=== PATIENT | male | born 1965 | race Caucasian/White ===

== ENCOUNTER 2020-05-02 15:08 | Inpatient (IN) | payer OTHER, MEDICAID, SELFPAY ==
[~2020-05-02] VITALS: Ht 162.6 cm; Wt 36.7 kg
--- NOTE | 2020-05-02 15:14 | NUR ---
Patient to ER bed 4 to gown for evaluation. Side rails up. Report given to OTTO Aguilera.
--- NOTE | 2020-05-02 15:20 | NUR ---
PT GAYATHRI FROM [facility] FOR MEDICAL EVALUATION AND CLEARANCE. PT HAS A HX OF BULEMIA AND HAS REFUSING TO EAT RESULTING IN ABOUT 10LB WEIGHT LOSS OVER THE LAST 2 WEEKS. PT HAS ALSO HAD ABNORMAL ELECTROLYTE VALUES. PT HAS A HX OF SCHIZOPHRENIA. PRESENTS AAOX3, V/S STABLE
[2020-05-02] MEDS ORDERED: DIVA500T4 PO (15:33)
[2020-05-02] MEDS ORDERED: LORA-259 PO (15:33)
[2020-05-02] MEDS ORDERED: PRO40 PO (15:33)
[2020-05-02] MEDS ORDERED: OLAN20TA30 PO (15:33)
[2020-05-02] MEDS ORDERED: ACET325T53 PO (15:33)
[2020-05-02] MEDS ORDERED: FERR325T30 PO (15:33)
[2020-05-02] MEDS ORDERED: [UNRECOGNIZED DRUG - OTHER] PO (15:33)
[2020-05-02] MEDS ORDERED: ZOLP5TAB2 PO (15:33)
[2020-05-02] MEDS ORDERED: MAGN24003 PO (15:33)
[2020-05-02] MEDS ORDERED: OLAN5TAB39 PO (15:33)
--- NOTE | 2020-05-02 15:33 | NUR ---
Medication reconciliation completed with information provided by [facility]. Any prior medication reconciliation on file was reviewed and corrected.
--- NOTE | 2020-05-02 15:35 | NUR ---
ER DR. CLARKE AT THE BEDSIDE EVALUATING PT
--- NOTE | 2020-05-02 15:37 | NUR ---
PORTABLE X-RAY AT THE BEDSIDE
[2020-05-02 16:25] LABS: BASOPHILS % (AUTO) 0.3 % (0.0-2.0); EOSINOPHILS # (AUTO) 0.1 K/uL (0.0-0.4); EOSINOPHILS % (AUTO) 0.5 % (0.0-4.0); HEMATOCRIT 39.1 % (36-54); HEMOGLOBIN 12.2 g/dL (14.0-18.0); LYMPHOCYTES # (AUTO) 2.6 K/uL (1.0-5.5); LYMPHOCYTES % (AUTO) 18.8 % (20.5-51.5); MEAN CORPUSCULAR HEMOGLOBIN 26 pg (27-31); MEAN CORPUSCULAR HGB CONC 31 % (32-36); MEAN CORPUSCULAR VOLUME 84 fL (79.0-98.0); MONOCYTES # (AUTO) 1.4 K/uL (0.0-1.0); NEUTROPHILS # (AUTO) 9.9 K/uL (1.8-7.7); NEUTROPHILS % (AUTO) 70.4 % (40.0-70.0); PLATELET COUNT (AUTO) 437 K/uL (130-430); RED BLOOD CELL COUNT(AUTO) 4.68 MIL/uL (4.2-6.2); RED CELL DISTRIBUTION WIDTH 15.7 % (9.0-15.0)
[2020-05-02 16:42] LABS: ANION GAP 8 (5-15); CALCIUM 8.9 mg/dL (8.4-11.0); CHLORIDE 87 mmol/L (98-107); CREATININE 0.81 mg/dL (0.55-1.30); GLUCOSE 73 mg/dL (70-99); POTASSIUM 3.4 mmol/L (3.5-5.1); SODIUM SERUM 127 mmol/L (136-145); UREA NITROGEN, BLOOD 51 mg/dL (8-21)
--- NOTE | 2020-05-02 16:55 | NUR ---
ADMIT ORDERS RECEIVED FROM DR. PHILIP
[2020-05-02 16:56] LABS: ALANINE AMINOTRANSFERASE 21 U/L (12-78); ALBUMIN 3.5 g/dL (3.4-4.8); ASPARTATE AMINOTRANSFERASE 36 U/L (10-37); BILIRUBIN,DIRECT 0.1 mg/dL (0.0-0.3); FREE T4 (FREE THYROXINE) 1.7 ng/dl (0.8-1.5); LIPASE 71 U/L (73-393); PHOSPHORUS 3.4 mg/dL (2.7-4.5); THYROID STIMULATING HORMONE 0.28 uIu/mL (0.36-3.74); TOTAL BILIRUBIN 0.4 mg/dL (0.0-1.0)
[2020-05-02] MEDS ORDERED: KCL 20 mEq in D5/0.45NS 1000mL 1,000 ML IV ONE (17:00)
--- NOTE | 2020-05-02 17:00 | NUR ---
# 20 gauge angiocath placed to LFA. Use of asceptic technique. Opsite placed over site. Blood return noted. Flushed with 10 cc of normal saline. No evidence of infiltration noted. Patient tolerated well.
--- NOTE | 2020-05-02 17:00 | NUR ---
COVID SWAB DONE AND SENT TO LAB
--- NOTE | 2020-05-02 17:05 | NUR ---
CALLED FOR MS BED, PER CHARGE NURSE NO BEDS AVAILABLE
[2020-05-02 17:09] LABS: ACETAMINOPHEN < 1 ug/mL (1-30); GFR AFRICAN AMERICAN 129 mL/min (>90)
[2020-05-02] MEDS ORDERED: ZOLPIDEM TARTRATE 5 MG TABLET PO SCH (18:45)
[2020-05-02] MEDS ORDERED: LORazepam 1 MG TABLET PO PRN (18:45)
[2020-05-02] MEDS ORDERED: ACETAMINOPHEN 325 MG TABLET PO PRN (18:45)
--- NOTE | 2020-05-02 19:21 | NUR ---
REPORT GIVEN TO OTTO NEGRETE FOR CONTINUING CARE
--- NOTE | 2020-05-02 19:21 | NUR ---
Assumed care of patient at change of shift. Introduced self to patient who is currently eating his dinner tray approx 15%. Positioned for comfort and safety w/ bed to low position sr up, continue to monitor level of comfort. Iv site to LAC w/ D5 1/2 NS at 125ml infusing w/ site patent and intact. nsr on property assessment monitor
[2020-05-02] MEDS ORDERED: ONDANSETRON HCL 4 MG/2 ML VIAL IVP PRN (19:45)
[2020-05-02] MEDS: KCL 20 mEq in D5NS 1000 mL 1,000 ML IV SCH (20:33)
[2020-05-02] MEDS: ENOXAPARIN SODIUM 30 MG/0.3 ML SYRINGE SUBCUT SCH (20:37)
--- NOTE | 2020-05-02 20:42 | NUR ---
patient medicated as ordered. Will observe for any adverse reaction. Changed D5 1/2 NS at 125ml/hr to D5NS at 100 ml/hr. iv site patent and intact. continue to monitor.
[2020-05-02] MEDS ORDERED: DIVALPROEX SODIUM 500 MG TAB.SR.24H (DEPAKOTE ER) PO ONE (21:00)
[2020-05-02] MEDS: FERROUS SULFATE 325 MG TABLET.DR PO SCH (21:24)
--- NOTE | 2020-05-02 21:38 | NUR ---
patient w/ increased agitation, medicated as ordered. will observe for any adverse reactionl bed to low position sr up, continue to monitor.
--- NOTE | 2020-05-02 22:19 | NUR ---
patient resting comfortably at this time, decreased agitation and hollering. Bed to low position sr up. No adverse reaction noted to administered medications. Continue to monitor.
--- NOTE | 2020-05-02 23:46 | NUR ---
Patient resting quietly. No acute distress noted. Vital signs within normal range. Continue to monitor level of comfort and safety. No adverse reaction noted to administered medications.
--- NOTE | 2020-05-03 00:40 | NUR ---
Patient will be admitted to care of [facility]. Admitted to unit. Will go to room . Belongings list completed. Complete and up to date summary report printed. SBAR report to be given Kassidy MENJIVAR for room 100B with opportunity for questions.
--- NOTE | 2020-05-03 01:06 | NUR ---
ADMISSION NOTES ADMITTED PATIENT FROM ER FOR DEHYDRATION/HYPOKALEMIA. PATIENT ORIENTED TO SELF. BREATHING UNLABORED ON ROOM AIR. DENIES ANY PAIN. IVF INFUSING ORDERED. VITAL SIGNS STABLE. ADMISSION PROCESS INITIATED. PATIENT ORIENTED TO CALL LIGHT, TV REMOTE, BED CONTROLS. BED IN LOWEST LOCKED POSITION WITH ALARM ON.
[2020-05-03 01:14] VITALS: BP_SYST 114
[2020-05-03 01:22] LABS: BILIRUBIN,URINE NEGATIVE (NEGATIVE); BLOOD, URINE NEGATIVE (NEGATIVE); CLARITY/URINE CLOUDY (CLEAR); COLOR,URINE YELLOW (YELLOW); GLUCOSE,URINE NEGATIVE (NEGATIVE); KETONES,URINE NEGATIVE (NEGATIVE); LEUKOCYTE ESTERASE ,URINE NEGATIVE (NEGATIVE); NITRITE, URINE POSITIVE (NEGATIVE); PH,URINE 5.5 (5.0-8.0); PROTEIN URINE NEGATIVE (NEGATIVE); UROBILINOGEN,URINE 0.2 (0.2-1.0)
[2020-05-03 01:29] LABS: BACTERIA,URINE MODERATE /HPF (None Seen); RBC,URINE 20-50 /HPF (0-3); WBC,URINE 20-50 /HPF (0-3)
--- NOTE | 2020-05-03 01:45 | NUR ---
ORAL INTAKE PATIENT STARTED GAGGING/SPITTING IN VOMIT BAG AFTER CONSUMING 1 CUP OF APPLE JUICE. ADDITIONAL VOMIT BAG AT BEDSIDE.
--- NOTE | 2020-05-03 03:07 | NUR ---
ROUNDS PATIENT RESTING IN BED. NO DISTRESS NOTED. IVF INFUSING. BED ALARM ON.
[2020-05-03] MEDS ORDERED: KCL 20 mEq in D5NS 1000 mL 1,000 ML IV ONE (03:23)
--- NOTE | 2020-05-03 04:56 | NUR ---
ROUNDS PATIENT RESTING IN BED. NO DISTRESS NOTED.
[2020-05-03] MEDS: KCL 20 mEq in D5NS 1000 mL 1,000 ML IV SCH ×2 (05:58→15:00)
[2020-05-03 06:27] LABS: BASOPHILS # (AUTO) 0.1 K/uL (0.0-0.2); BASOPHILS % (AUTO) 0.5 % (0.0-2.0); EOSINOPHILS # (AUTO) 0.1 K/uL (0.0-0.4); EOSINOPHILS % (AUTO) 0.6 % (0.0-4.0); HEMATOCRIT 31.8 % (36-54); HEMOGLOBIN 10.4 g/dL (14.0-18.0); LYMPHOCYTES # (AUTO) 2.8 K/uL (1.0-5.5); LYMPHOCYTES % (AUTO) 26.3 % (20.5-51.5); MEAN CORPUSCULAR HEMOGLOBIN 27 pg (27-31); MEAN CORPUSCULAR HGB CONC 33 % (32-36); MONOCYTES # (AUTO) 1.4 K/uL (0.0-1.0); MONOCYTES % (AUTO) 12.9 % (1.7-9.3); NEUTROPHILS # (AUTO) 6.3 K/uL (1.8-7.7); NEUTROPHILS % (AUTO) 59.7 % (40.0-70.0); PLATELET COUNT (AUTO) 403 K/uL (130-430); RED BLOOD CELL COUNT(AUTO) 3.86 MIL/uL (4.2-6.2); RED CELL DISTRIBUTION WIDTH 15.3 % (9.0-15.0); WHITE BLOOD COUNT (AUTO) 10.6 K/uL (4.8-10.8)
--- NOTE | 2020-05-03 07:10 | NUR ---
PAGED PAGED YAMILEX BENEDICT AT [phone] SPOKE WITH CASSIDY.
[2020-05-03 07:11] LABS: CALCIUM 8.3 mg/dL (8.4-11.0); CREATININE 0.68 mg/dL (0.55-1.30)
--- NOTE | 2020-05-03 07:15 | NUR ---
post fall/ Dr. rousseau patient was found on the floor by EVS. Patient has laceration to left eyebrow with abrasion to left cheek. Dr. Rousseau was informed ordered a PT eval, nothing ordered for the head. cleaned laceration with normal saline, pat dry with gauze and placed bandaid over laceration. patient is confused same as prior to fall. patient had bed alarm on but was in room 100 B moved patient to 104A post fall. post fall assessment done. patient was educated to use call light prior to getting out of bed. patient verbalized understanding but is still confused. patient given fall risk arm band, as well as yellow socks. Patient keeps spitting up the water he is drinking night nurse stated he was doing this all night. report was endorsed by night nurse. no other needs at this time.
[2020-05-03 07:27] VITALS: BP_SYST 132
[2020-05-03 07:54] LABS: MEAN CORPUSCULAR VOLUME 82 fL (79.0-98.0)
--- NOTE | 2020-05-03 08:37 | NUR ---
CONSULTATION PAGED/CALLED Reason for Consultation: [] PSYCHOSIS Person Who was Notified: [] LEFT A VM ON HIS CELL Consulting Physician: [] DR CAMACHO Loan Assistant Specialty: [] PSYCH Ordering Physician: [] DR PHILIP
[2020-05-03] MEDS ORDERED: OLANZapine 5 MG TAB.RAPDIS PO SCH (09:00)
[2020-05-03] MEDS: FERROUS SULFATE 325 MG TABLET.DR PO SCH ×2 (09:10→20:27)
[2020-05-03] MEDS: PANTOPRAZOLE SODIUM 40 MG TAB PO SCH (09:10)
[2020-05-03] MEDS: DIVALPROEX SODIUM 500 MG TAB.SR.24H (DEPAKOTE ER) PO SCH ×2 (09:10→20:28)
--- NOTE | 2020-05-03 09:15 | NUR ---
medication patients scheduled medication given per order. patient is awake and alert, speech is garbled. patient keeps spitting up what is swallowed offer antinausea medication but is refusing. patient educated online user experience strategist light , call light is with him. patient is now close to nurses station. patient requested apple juice in ice provided to patient as requested. patient is moving all over and pulling on iv,applied more tape to insertion site educated to not pull on iv.
--- NOTE | 2020-05-03 11:00 | NUR ---
RN ROUNDING PATIENT IS CURSING AT NURSE. PATIENT IS STATING HE WANTS ICE AND APPLE JUICE PROVIDED TO THE PATIENT APPEARS TO BE SPITTING IT UP. CONTENTS ARE CLEAR. PATIENT APPEAR TO HAVE SPIT UP HIS MORNING MEDICATION. ASKED PATIENT IF HE WOULD LIKE SOMETHING FOR THE NAUSEA BUT HE STATES NO. PATIENT'S SPEECH IS VERY GARBLED. PATIENT IS CLOSE TO NURSES STATION. PATIENT HAS NO OTHER NEEDS AT THIS TIME.ALL SAFETY PRECAUTIONS IN PLACE. PATIENT HAS CALL LIGHT WITH HIM EDUCATED TO USE CALL LIGHT FOR ASSISTANCE.
[2020-05-03 11:23] VITALS: BP_SYST 129
--- NOTE | 2020-05-03 13:55 | NUR ---
RN ROUNDING PATIENT APPEARS TO BE RESTING WITH BOTH EYES CLOSED NO SIGNS OF ANY DISTRESS, BREATHING IS EQUAL AND NON LABORED. PATIENT IS CLOSE TO NURSES STATION. ALL SAFETY PRECAUTIONS IN PLACE. NO OTHER NEEDS AT THIS TIME.
[2020-05-03 15:10] VITALS: BP_SYST 140
--- NOTE | 2020-05-03 15:30 | NUR ---
IV SITE PATIENT REMOVED iv CATHETER CATHETER INTACT, APPLIED GAUZE AND TAPE TO INSERTION SITE. PATIENT IS REFUSING TO START A NEW IV. PATIENT EDUCATED ON IMPORTANCE FOR MEDICATION AND IV FLUID BUT IS STILL REFUSING. PATIENT EDUCATED MANAGEMENT SME LIGHT, CALL LIGHT IS WITH HIM. PATIENT IS REQUESTING APPLE JUICE AND ICE PATIENT KEEPS SPITTING EVERYTHING UP . PATIENT IS REFUSING ANYTHING FOR NAUSEA. PATIENT IS CLOSE TO NURSES STATION. NO OTHER NEEDS AT THIS TIME.
--- NOTE | 2020-05-03 16:30 | NUR ---
SS notes VP MEDICAL meet with patient on her third attempt. Patient had been sleeping with his head under the sheet and in a position. Patient uncovered his head and began talking, but VP MEDICAL was not able to comprehend what patient was saying. Patient would speak, but throughout the interview, VP MEDICAL was unable to understand patient who looked much older than his age of 54. Patient stated he was 60 and that he resided with his friends mom Mrs. Pretty in [place]. Patient denied being homeless and agreed he had been at [facility]. Patient denied having any mental health diagnosis. When VP MEDICAL asked specifically if patient had ever ade diagnosed with psychosis or schizophrenia patient denied this. VP MEDICAL asked patient if he had ever been or is suicidal. Patient denied this. VP MEDICAL shared with patient some homeless resources. VP MEDICAL will remain available as needed. Addendum: 05/03/20 at 1643 by Robyn [employer] Protective Signal Operations Supervisor Notes When VP MEDICAL asked patient if he had any emergency contacts to which patient stated he did not. VP MEDICAL placed a homeless waiver in patients file.
--- NOTE | 2020-05-03 17:08 | NUR ---
RN ROUNDING PATIENT IS AWAKE AND ALERT SITTING UP IN BED. PATIENT IS STILL REFUSING IV SITE. PATIENT IS CLOSE TO NURSES STATION. PATIENT EDUCATED SYSTEM PLANNING ENGINEER LIGHT, CALL LIGHT IS WITH HIM. PATIENT IS CLOSE TO NURSES STATION. NO OTHER NEEDS AT THIS TIME.
--- NOTE | 2020-05-03 17:12 | NUR ---
PAGING DR. PHILIP TO INFORM OF POTASSIUM LEVEL, AND REFUSING IV ACCESS.
[2020-05-03] MEDS ORDERED: HALOPERIDOL LACTATE 5 MG/ML VIAL IM ONE (18:15)
--- NOTE | 2020-05-03 18:15 | NUR ---
dr. richey at nurses [facility]. informed md that patient is refusing iv access, and of lower potassium orders were received. md states that wants patient to have iv to replace potassium and continue with iv fluids. patient is awake and alert, orders put in the chart.
--- NOTE | 2020-05-03 18:52 | NUR ---
MEDICATION PATIENTS SCHEDULED DOSE OF HODOL GIVEN PER ORDER. PER MD WAIT UNTIL PATIENT CALMS DOWN THEN START AN IV, START IV FLUID BACK ONE. PATIENT IS AWAKE AND ALERT LAYING UPSIDE DOWN IN BED. PATIENT SHOWS NO SIGNS OF DISTRESS, TOLERATED MEDICATION WELL. PATIENT IS CLOSE TO NURSES STATION. PATIENT HAS ALLS AEFTTYP
--- NOTE | 2020-05-03 19:20 | NUR ---
OPENING NOTE patient is resting in bed, patient is only alert to self. patient is laying down supine with head at the end of the bed and legs at the head of the bed. educated call or contact centre manager light system and plan of care, patient just nodded his head and did not give me verbal agreement. patient refusing IV insertion at this time, will attempt again throughout the shift. no other needs addressed at this time, fall/safety, and aspiration precautions in place.
[2020-05-03 20:00] VITALS: BP_SYST 112
[2020-05-03] MEDS ORDERED: KCL 20 mEq in 100 mL (PREMIX) 100 ML IV SCH (20:00)
[2020-05-03] MEDS: OLANZapine 5 MG TAB.RAPDIS PO SCH (20:27)
[2020-05-03] MEDS: ENOXAPARIN SODIUM 30 MG/0.3 ML SYRINGE SUBCUT SCH (20:29)
--- NOTE | 2020-05-03 21:40 | NUR ---
ROUNDS patient resting in bed, eyes closed breathing easy and nonlabored. no signs of distress at this time, tolerating well on room air, no other needs addressed at this time, fall/safety and aspiration precautions in place.
--- NOTE | 2020-05-03 23:19 | NUR ---
PATIENT RESTING IN BED eyes closed, breathing easy and nonlabored. mumbling words. no signs of distress at this time. no needs addressed at this time. fall/safety and aspiration precautions in place.
--- NOTE | 2020-05-04 00:15 | NUR ---
PATIENT REFUSED VITAL SIGNS AND IV INSERTION patient refused vital signs with SKI LIFT ATTENDANT and I. I asked patient again permission to insert a new IV, patient refused. patient was raising his voice and guarding himself every time I asked again about the IV. will follow up with asking him again throughout my shift.
[2020-05-04] MEDS: KCL 20 mEq in D5NS 1000 mL 1,000 ML IV SCH ×2 (01:00→21:00)
--- NOTE | 2020-05-04 02:20 | NUR ---
ROUNDS patient is sitting in bed, patient is constantly drinking and eating but spitting it back up in the cups. no active vomiting and patient denies nausea. patient is still refusing IV insertion and vital signs. no signs of distress at this time. fall/safety and aspiration precautions in place.
--- NOTE | 2020-05-04 04:11 | NUR ---
ROUNDS patient is sitting in bed, patient is constantly drinking and eating but spitting it back up in the cups, although patient denies nausea. patient is still refusing IV insertion and vital signs. no signs of distress at this time. fall/safety and aspiration precautions in place.
--- NOTE | 2020-05-04 06:32 | NUR ---
CLOSING NOTE patient is resting in bed, patient is only alert to self. patient is laying down supine with head at the end of the bed and legs at the head of the bed. patient has been refusing a new IV insertion all night. when asked about it the patient raises his voice and is guarded. will endorse to day shift to attempt IV insertion and if unsuccessful to let the primary MD know about it. no other needs addressed at this time, fall/safety, and aspiration precautions in place.
[2020-05-04 08:00] VITALS: BP_SYST 120
--- NOTE | 2020-05-04 08:00 | NUR ---
AM NOTES PT STABLE NOT IN ACUTE DISTRESS. RES EVEN AND UNLABORED. VIATLS STABLE .PT REFUSED TO HAVE IV INSERTION. FALL/SAFETY PRECAUTIONS IN PLACE. BED LOW AND LOW POSITIONS .ENCOURGED TO TO DRINK ENSURE.BED ALARM ON. CALL LIGHT WITHIN REACH. WILL CONITNUE TO MONITOR
--- NOTE | 2020-05-04 08:29 | NUR ---
ATTEDNING MD DR PHILIP WAS PAGED DIRECTLY, RE: PT IS REFUSING IV.
[2020-05-04] MEDS ORDERED: POTASSIUM CHLORIDE 20 MEQ/PKT PACKET PO ONE (08:30)
--- NOTE | 2020-05-04 08:30 | NUR ---
called called dr car and informed that pt is refusing iv insertion. new order received
--- NOTE | 2020-05-04 10:12 | NUR ---
SS notes: Collateral call made to [facility], information received from Armida Malloy. Pt is homeless and was at [facility] prior to transfer to [facility]. Discharge plan was for patient to go to [facility] (contact: Julian @ [phone]). Nicole MAZARIEGOS notified.
[2020-05-04] MEDS ORDERED: POTASSIUM CHLORIDE 20 MEQ/PKT PACKET ONE (10:13)
[2020-05-04] MEDS: PANTOPRAZOLE SODIUM 40 MG TAB PO SCH (10:15)
[2020-05-04] MEDS: DIVALPROEX SODIUM 500 MG TAB.SR.24H (DEPAKOTE ER) PO SCH ×2 (10:15→22:53)
[2020-05-04] MEDS: FERROUS SULFATE 325 MG TABLET.DR PO SCH ×2 (10:16→22:53)
[2020-05-04] MEDS: OLANZapine 5 MG TAB.RAPDIS PO SCH ×2 (10:19→23:14)
--- NOTE | 2020-05-04 10:21 | NUR ---
Nutrition Update Ryan Scale 15 noted. Pt admitted for dehydration/hypokalemia. Diet: mechanical soft, Ensure Enlive TID BMI: 14.2 kg/m2 RD to follow per nutrition care standards.
--- NOTE | 2020-05-04 11:21 | NUR ---
PHYSICAL THERAPY CO-SIGN The Physical Therapy Progress Notes documented by Nozzle Cement Sprayer Helper have been reviewed. Reviewed/Co-Signed by: Guille Michael Documentation Done by: JEANNINE DAVIS PTA Addendum: 05/04/20 at 1121 by Guille Michael PT Amended: Links added.
[2020-05-04 12:10] VITALS: BP_SYST 110
--- NOTE | 2020-05-04 12:20 | NUR ---
ROUNDS PT STABLE NOT IN ACUTE DISTRESS. RESTING COMFORTABLY. VITALS STABLE. SEEN BY DR GRAJEDA. WILL CONITNUE TO MONITOR
--- NOTE | 2020-05-04 13:45 | NUR ---
DC Planning: Per saritha Rousseau: given dcp to snf the order is carried out. Zeus Guzman will process the referral. Dr Rousseau recommend pt going to [facility]. Zeus Guzman is to process the referral. Addendum: 05/04/20 at 1521 by Nicole Sanchez RN s/w Lacey Norton : the pt is accepted , no need for 3 days acute hospital stay for admission. She has bed available today, will give bed assignment once received the final dc order. -- Dr Rousseau made aware and he is to call nursing for the final dc order and med reconciliation.
--- NOTE | 2020-05-04 13:50 | NUR ---
Dietitian Recommendations * Recommend continuing mechanical soft diet w/ Ensure Enlive TID (ONS provides 1050 kcal/day, 60 gm protein/day) * Encourage increase PO intakes * High potassium-rich foods w/ dinner daily LP, RD Please refer to Nutrition Assessment for details. Addendum: 05/04/20 at [address] Amended: Links added.
--- NOTE | 2020-05-04 14:18 | NUR ---
Dietitian Recommendations * Recommend continuing mechanical soft diet w/ Ensure Enlive 4x/day (ONS provides 1400 kcal/day, 80 gm protein/day) * Encourage increase PO intakes * High potassium-rich foods w/ dinner daily * Pt will receive Ensure Enlive at PM snack time as well as meals TID BRITNEY, RD Please refer to Nutrition Assessment for details. Addendum: 05/04/20 at [address] Amended: Links added.
--- NOTE | 2020-05-04 16:00 | NUR ---
rounds pt stable no s/s of pain or distress noted. sitting in bed. safety and fall precaution in place. bed alarm on . will conitnue to monitor
[2020-05-04 16:10] VITALS: BP_SYST 110
--- NOTE | 2020-05-04 19:15 | NUR ---
closing notes pt stable. resting in bed. no s/s of pain or distress noted. safety and fall precaution in place. bed alarm on .not in res distress.bed alarm on. needs attended. report given to jeramie MENJIVAR
--- NOTE | 2020-05-04 19:35 | NUR ---
Opening note patient resting in bed awake, AOx1, no distress, non labored breathing on room air. Presently no IV and OTTO Spangler reports MD aware. Bed is locked in lowest position and bed alarm on.
[2020-05-04 20:00] VITALS: BP_SYST 115
--- NOTE | 2020-05-04 20:00 | NUR ---
V/S Patient resting in bed, calm and cooperates; allowed for V/S.
[2020-05-04] MEDS: MUPIROCIN 2% TOPICAL OINTMENT 22 GM NS SCH (22:54)
--- NOTE | 2020-05-04 22:55 | NUR ---
meds Meds given crushed and mixed in small amount of apple juice; spoon fed and patient swallowed. Followed with shawnllo and he took three spoons of jello. Reviewed procedure for Bactroban application; he agreed and tolerated. He drinks fluids and asks for juice; provided. Safety precautions in place.
[2020-05-04] MEDS: ENOXAPARIN SODIUM 30 MG/0.3 ML SYRINGE SUBCUT SCH (22:56)
[2020-05-05 00:03] VITALS: BP_SYST 116
--- NOTE | 2020-05-05 00:30 | NUR ---
awake Patient is still awake, sitting upright drinking fluids and at times spitting into cup. No distress noted, will continue to monitor.
--- NOTE | 2020-05-05 04:30 | NUR ---
sleeping Patient is calm and quiet, sleeping. non labored breathing.
[2020-05-05] MEDS: KCL 20 mEq in D5NS 1000 mL 1,000 ML IV SCH ×2 (05:16→08:41)
--- NOTE | 2020-05-05 06:30 | NUR ---
Refused lab draw shannan Santiago tech informed patient refused lab draw.
[2020-05-05 07:54] LABS: BASOPHILS % (AUTO) 0.7 % (0.0-2.0); EOSINOPHILS # (AUTO) 0.1 K/uL (0.0-0.4); EOSINOPHILS % (AUTO) 2.6 % (0.0-4.0); HEMATOCRIT 32.5 % (36-54); HEMOGLOBIN 10.5 g/dL (14.0-18.0); LYMPHOCYTES # (AUTO) 2.5 K/uL (1.0-5.5); LYMPHOCYTES % (AUTO) 44.5 % (20.5-51.5); MEAN CORPUSCULAR HEMOGLOBIN 27 pg (27-31); MEAN CORPUSCULAR HGB CONC 32 % (32-36); MEAN CORPUSCULAR VOLUME 82 fL (79.0-98.0); MONOCYTES # (AUTO) 0.7 K/uL (0.0-1.0); MONOCYTES % (AUTO) 11.6 % (1.7-9.3); NEUTROPHILS # (AUTO) 2.3 K/uL (1.8-7.7); NEUTROPHILS % (AUTO) 40.6 % (40.0-70.0); PLATELET COUNT (AUTO) 315 K/uL (130-430); RED BLOOD CELL COUNT(AUTO) 3.95 MIL/uL (4.2-6.2); RED CELL DISTRIBUTION WIDTH 15.6 % (9.0-15.0); WHITE BLOOD COUNT (AUTO) 5.7 K/uL (4.8-10.8)
--- NOTE | 2020-05-05 07:55 | NUR ---
INITIAL NOTE RECEIVED PT IN BED, NO S/S OF DISTRESS OR SOB NOTED, PT HAS NO C/O PAIN AT THIS TIME, PT IN STABLE CONDITION, PT AAOX1, VERBAL, CONFUSED, PROVIDED PT WITH REALITY ORIENTATION, PT REFUSED TO HAVE AN IV CATHETER IN PLACE, MD AWARE. BED AT LOWEST POSITION, CALL LIGHT WITHIN REACH, WILL CONTINUE TO MONITOR PT FOR ANY CHANGES, FALL AND SAFETY PRECAUTIONS IN PLACE. PT ON ISOLATION PRECAUTIONS.
[2020-05-05 08:20] VITALS: BP_SYST 113
[2020-05-05 08:24] LABS: CALCIUM 8.4 mg/dL (8.4-11.0); CREATININE 0.53 mg/dL (0.55-1.30); POTASSIUM 3.9 mmol/L (3.5-5.1)
[2020-05-05] MEDS: FERROUS SULFATE 325 MG TABLET.DR PO SCH (08:40)
[2020-05-05] MEDS: PANTOPRAZOLE SODIUM 40 MG TAB PO SCH (08:40)
[2020-05-05] MEDS: DIVALPROEX SODIUM 500 MG TAB.SR.24H (DEPAKOTE ER) PO SCH (08:40)
[2020-05-05] MEDS: MUPIROCIN 2% TOPICAL OINTMENT 22 GM NS SCH (08:40)
[2020-05-05] MEDS: OLANZapine 5 MG TAB.RAPDIS PO SCH (08:41)
--- NOTE | 2020-05-05 10:10 | NUR ---
ROUNDS PT IN BED, NO S/S OF DISTRESS OR SOB NOTED, PT HAS NO C/O PAIN AT THIS TIME, PT IN STABLE CONDITION, PT RESTING COMFORTABLY. WILL CONTINUE TO MONITOR PT FOR ANY CHANGES. PT CONTINUES TO REFUSED TO HAVE AN IV CATHETER AND KEEPS SPITTING ALL OVER HIS ROOM.
[2020-05-05 12:15] VITALS: BP_SYST 98
--- NOTE | 2020-05-05 13:40 | NUR ---
DC order from dr. Rousseau : ok to dc to [facility] today. did reassessment at bedside. >> Per Lacey Wiseman [facility] given room 2260 , bed available now. RN to report # [phone]. >> Booked with [facility] ambulance , S for 4 pm continuous pickling line pickler helper.-- OTTO Bailey made aware.
--- NOTE | 2020-05-05 13:49 | NUR ---
WOUND CARE PICTURES PT REFUSED TO HAVE WOUND CARE PICTURES TAKEN OF HIS FACE, STARTED SPITTING AND HITTING STAFF. WILL ATTEMPT AGAIN BEFORE D/C.
[2020-05-05 14:35] VITALS: BP_SYST 110
--- NOTE | 2020-05-05 14:43 | NUR ---
REPORT REPORT GIVEN TO AT [facility], ANSWERED ALL QUESTIONS.
[2020-05-05 16:11] VITALS: BP_SYST 94
--- NOTE | 2020-05-05 16:40 | NUR ---
PT TRANSFERRED Report given to lady at [facility]. Transfer packet with Transfer Orders and Medication Reconciliation form given to EMT with report. Exitcare provided. [facility] ID band removed, replaced with ID band with pt's name and . All belongings sent with patient. Patient left floor via gurney escorted by EMT in no distress. Addendum: 05/05/20 at 1642 by Lynn Olivier RN pt continued to refused to have pictures taken of his face
[2020-05-05] MEDS ORDERED: OLANZapine 10 MG TAB.RAPDIS PO SCH (21:00)
== END 2020-05-05 16:40 | DRG 641 ==
LOC: SED 15:08 → SMU 16:55
PROVIDERS: ADMIT Family Medicine; ATTEND Family Medicine
DX: E86.0 Dehydration (principal); N17.9 Acute kidney failure, unspecified; E87.1 Hypo-osmolality and hyponatremia; F29 Unspecified psychosis not due to a substance or known physiological condition; E87.6 Hypokalemia; D64.9 Anemia, unspecified; Z20.828 Contact with and (suspected) exposure to other viral communicable diseases; Z59.0 Homelessness; Z79.899 Other long term (current) drug therapy
CPT/HCPCS: 36415; 71045; 80048; 80076; 81000-TC; 83690-TC; 83735-TC; 83880; 84100-TC; 84439; 84443-TC; 84484; 85025; 87081; 87086; 93005; 97110-GP; 97530-GP; 99285; G0480; G0481; J1630; J1650